=== PATIENT | female | born 1975 | race African-American/Black ===

== ENCOUNTER 2017-06-17 08:53 | Emergency (ER) | payer BC, OTHER ==
[~2017-06-17] VITALS: Ht 170.2 cm; Wt 117.9 kg
[~2017-06-17 08:53] MED LIST: BACLOFEN10 MG PO; HCTZ PO; HYDROCODON-ACE1 EAC7 PO; NORVASC10 MG PO; TIROSINT25 MCG PO; VOLTAREN75 MG PO
== END 2017-06-17 09:45 | disposition home or self-care (01) ==
LOC: CFTX 08:53 → CED 08:53 → CFTX 09:39
DX: L02.212 Cutaneous abscess of back [any part, except buttock and flank] (principal); L03.312 Cellulitis of back [any part except buttock and flank]; I10 Essential (primary) hypertension; J45.909 Unspecified asthma, uncomplicated; F17.200 Nicotine dependence, unspecified, uncomplicated
CPT/HCPCS: 10060; 87070; 87205; 99283